=== PATIENT | female | born 1975 | race Caucasian/White ===

== ENCOUNTER 2016-05-29 05:47 | Emergency (ER) | payer SELFPAY ==
[~2016-05-29] VITALS: Ht 162.6 cm; Wt 70.8 kg
--- NOTE | 2016-05-29 05:58 | NUR ---
pt [facility] denies any si, but says she is hurting.. bilateral feet from walking, c/o of foot pain. pt is alert, oriented x 4, md at bedside...
--- NOTE | 2016-05-29 06:00 | NUR ---
in room with pt, pt became upset at MD and began yelling, when MD asked if pt has s/i, pt yelled "my feet hurt from walking," pt demanded to be discharged...
--- NOTE | 2016-05-29 06:15 | NUR ---
Patient discharged to home in stable conditon. Written and verbal after care instructions given. Patient verbalizes understanding of instructions. pt walked out of ER unassisted with belongings at side...
[2016-05-29 06:16] VITALS: BP 110/85
== END 2016-05-29 06:17 | disposition home or self-care (01) ==
LOC: ER 05:52
DX: Z00.00 Encounter for general adult medical examination without abnormal findings (principal)
CPT/HCPCS: A4663